=== PATIENT | female | born 1980 | race Caucasian/White ===

== ENCOUNTER 2017-11-21 11:11 | Inpatient (IN) | payer OTHER ==
[~2017-11-21] VITALS: Ht 165.1 cm; Wt 68.0 kg
--- NOTE | 2017-11-21 10:45 | NUR ---
Pre Admission Pt is A/O x4 and makes her needs known. Pt is calm and cooperative with a linear thought process and clear speech pattern. Normal affect with congruent mood. Pt with full range of emotions. Pt endorses using 1-1.5 grams of Heroin, via smoking, daily since 07/2017. Pt was in treatment, left early and relapsed. Pt denies SI/HI or A/VH. Pt is stable for admission. VS as follows BP: 113/70 P: 92 R: 18 T: 98.3 O2: 98%
--- NOTE | 2017-11-21 12:20 | NUR ---
Admission Assessment PCP: Toy Viramontes Substance Use: Heroin: Smokes 1 to 1.5 grams daily since 07/2017. Used at this rate for 2 years. First use three years ago. With last use, smoked approximately 0.1 gram at 0900 11/21/17. Methamphetamine: smokes 0.5 grams daily, off and on for 20 years. First use at age 15. Last use approximately 0.05 grams at 0900 on 11/21/17. Soma: PO 700-1050mg at HS( for insomnia) 3 or 4 times a week. ( pt presents with prescription bottle) GHB: 1 or 2 a month, last use 3 weeks ago. a capful, like the 5 hour energy bottles. Pt admitted to [facility] at 1220, per ambulation. Pt has skin check performed by BARBARA Trevino, with skin intact. Pt is A/O x4 and makes her needs known. Pt with a linear thought process and clear speech pattern. Pt endorses last use, 0.1 gram of Heroin via smoking at 0900 and feels, normal, not sick, not high ( no COWS on admit) Pt with a normal affect and congruent mood. Pt is bright when appropriate and endorse hope for the future. Pt shows insight and is motivated for change. Pt reflects on the importance of her mother in her recovery. Pt endorses her mother has an internal motivating factor. Pt endorses first using Methamphetamines at age 15, to lose weight, I know, stupid right? Pt endorses liking the feeling and has been using, on and off since. Pt is vague about times of use and abstinence. Pt used Heroin 3 years ago after her Meth supplier, he kept asking me if I knew anyone that wanted to, you know, and I finally, well I did something stupid. It was a stupid mistake. I will be honest, I didnt think I would get addicted that fast. Pt shows motivation to get sober, before really bad things happen. Pt endorses a negative consequences in all aspect of my life. , as related to her substance abuse. Pt denies any legal history. Pt able to endorse, sweating, feeling edgy, intense cravings and running nose, as symptoms she experiences when not using Heroin. Pt endorses having a supportive family. 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 Pt endorses, wanting this for a while, I want to close this chapter in my life. Pt shows some insight and verbalizes a trigger to relapse being lack of support from the recovery community and leaving treatment early. Pt states she is going to treatment and will not leave early. Pt states she is looking for guidance. Pt endorses knowing to stay away from her using friends and endorses a strong sober friend [place]. Pt has attempted one prior formal attempt at sobriety in 07/2017 when she attended [facility] in [place]. Pt states , I stayed for 10 days of detox, then I left. Pt endorses staying sober for a week or so before relapsing. Pt denies any chronic medical history. Pt denies any previous psychiatric history. Pt denies any previous psychiatric hospitalizations. Pt denies any previous involuntary holds related to mental health. Pt denies any current SI/HI or A/VH. Pt is oriented to the unit and her room. Pt is provided with unit guidelines and rules. Pt is educated on all aspects of the admission process, including admission educational material and the detoxification process. Pt denies any further comments, questions or concerns.
[2017-11-21 12:41] LABS: *URINE HCG, QUAL NEGATIVE (NEGATIVE)
[2017-11-21 12:51] LABS: *AMPHETAMINE, URINE POSITIVE (NEGATIVE); *BARBITURATE, URINE NEGATIVE (NEGATIVE); *CANNABINOID, URINE NEGATIVE (NEGATIVE); *COCCAINE, URINE NEGATIVE (NEGATIVE); *OPIATE, URINE POSITIVE (NEGATIVE); *PHENCYCLIDINE SCREEN,URINE NEGATIVE (NEGATIVE)
[2017-11-21] MEDS ORDERED: DICYCLOMINE HCL 20 MG TABLET PO PRN (13:30)
[2017-11-21] MEDS ORDERED: MAGNESIUM HYDROXIDE 30 ML LIQUID UDC PO PRN (13:30)
[2017-11-21] MEDS ORDERED: ONDANSETRON ODT 4 MG TAB.RAPDIS SL PRN (13:30)
[2017-11-21] MEDS ORDERED: LOPERAMIDE HCL 2 MG CAPSULE PO PRN ×2 (13:30)
[2017-11-21] MEDS ORDERED: METHOCARBAMOL 750 MG TABLET PO PRN (13:30)
[2017-11-21] MEDS ORDERED: ACETAMINOPHEN 325 MG TABLET PO PRN (13:30)
[2017-11-21] MEDS ORDERED: MAG HYDROX/AL HYDROX/SIMETH 30 ML LIQUID UDC PO PRN (13:30)
[2017-11-21] MEDS ORDERED: INSULIN REGULAR, HUMAN 300 UNIT/3 ML VIAL SQ PRN (14:00)
[2017-11-21] MEDS ORDERED: DEXTROSE 50% 50 ML DISP.SYRIN IV PRN (14:00)
[2017-11-21] MEDS ORDERED: BLOOD SUGAR DIAGNOSTIC 1 EACH STRIP VI SCH (15:00)
[2017-11-21 15:52] LABS: BASOPHILS # (AUTO) 0.1 K/uL (0.0-8.0); EOSINOPHILS # (AUTO) 0.1 K/uL (0.0-0.7); EOSINOPHILS % (AUTO) 1.1 % (0.0-7.0); HEMATOCRIT 38.8 % (31.2-41.9); HEMOGLOBIN 12.9 g/dL (10.9-14.3); LYMPHOCYTES # (AUTO) 2.2 K/uL (20.0-40.0); MEAN CORPUSCULAR HEMOGLOBIN 29.1 uug (24.7-32.8); MEAN CORPUSCULAR HGB CONC 33 g/dL (32.3-35.6); MEAN CORPUSCULAR VOLUME 87.3 fL (75.5-95.3); MONOCYTES # (AUTO) 0.4 K/uL (2.0-10.0); MONOCYTES % (AUTO) 8.5 % (0.0-11.0); NEUTROPHILS # (AUTO) 2.4 K/uL (1.8-8.9); NEUTROPHILS % (AUTO) 46.4 % (38.5-71.5); PLATELET COUNT (AUTO) 194 K/uL (179-408); RED BLOOD CELL COUNT(AUTO) 4.44 MIL/uL (3.63-4.92); WHITE BLOOD COUNT (AUTO) 5.1 K/uL (3.8-11.8)
[2017-11-21 16:02] LABS: ALANINE AMINOTRANSFERASE 35 U/L (14-59); ALKALINE PHOSPHATASE 67 U/L (50-136); ASPARTATE AMINOTRANSFERASE 21 U/L (15-37); BILIRUBIN,TOTAL 0.3 mg/dL (0.2-1.0); CARBON DIOXIDE 31 mmol/L (21-32); CHLORIDE 103 mmol/L (98-107); CREATININE 0.7 mg/dL (0.6-1.3); GLUCOSE 125 mg/dL (74-106); POTASSIUM 3.5 mmol/L (3.5-5.1); TOTAL PROTEIN, SERUM 7.5 g/dL (6.4-8.2); UREA NITROGEN, BLOOD 8 mg/dL (7-18)
[2017-11-21 16:16] LABS: *URINE HCG, QUAL NEGATIVE (NEGATIVE)
[2017-11-21 16:24] LABS: ETHANOL < 3 MG/DL (0-0)
[2017-11-21 16:30] VITALS: BP 116/80
--- NOTE | 2017-11-21 16:30 | NUR ---
COWS Pt with fine tremors, moist skin, anxious and restless. Will continue to monitor, support and encourage according to plan of care. Will continue to monitor, support and encourage according to plan of care.
--- NOTE | 2017-11-21 16:34 | NUR ---
Therapist prompted client to attend group therapy sessions.
[2017-11-21] MEDS: IBUPROFEN 600 MG TABLET PO PRN (17:35)
--- NOTE | 2017-11-21 17:35 | NUR ---
PRN Kelly Pt requesting pain medication for headache 06/06. [employer] Officer administered medication to pt's preference and to order, with pt tolerating well. Will continue to monitor, support and encourage according to plan of care.
--- NOTE | 2017-11-21 18:35 | NUR ---
PRN Re-Assessment Pt endorses feeling better, rating pain at 2/10. Will continue to monitor, support and encourage according to plan of care.
--- NOTE | 2017-11-21 18:43 | NUR ---
End of Shift Soldering Technician provided report on 37 year old female admitted to [facility] on 11/21/17 for medical management of Opiate withdrawals. Pt denies any chronic PMH, and denies any PPH. Pt endorsers NKA, full code and regular diet. Pt with be started on a 3 day Subutex taper in the morning. Last COWS 5. Medicated with PRN Motrin(pain) this shift. Pt is A/O x4 and makes her needs known. Linear thought process and clear speech pattern. Pt is cooperative, has become anxious and restless. Requested anxiety medication, but was able to use non-pharmacological interventions to control her anxiety. Bed in low position with wheels locked and side rails up x2.
--- NOTE | 2017-11-21 19:49 | NUR ---
START OF SHIFT NOTE Rcvd report from outgoing nurse. Pt is a 37 y/o female A/O to person, place, time , and purpose. Pt was admitted for medically supervised withdrawal from Opiates. Pt also has a substance abuse h/o Methamphetamines, Soma, and GHB. Pt will be on a 3 day Subutex taper beginning on 11/22/17. Pt began to present w/ anxiety, restlessness, body aches, tremors, flushing, stuffiness, tearing, abdominal cramping, and shakiness. PRN Motrin was given and noted effective by outgoing nurse. Last COWS 5 @ 1600. Call light is within reach. Pt will continue to be monitored and needs met.
--- NOTE | 2017-11-21 20:03 | NUR ---
COWS ASSESSMENT COWS 13. Pt began to present w/ anxiety, restlessness, body aches, tremors, flushing, stuffiness, tearing, abdominal cramping, and shakiness. V/S: T:99.5, P:85, RR:18, SPO2:100, BP:123/81.
[2017-11-21 20:04] VITALS: BP 123/81
--- NOTE | 2017-11-21 20:05 | NUR ---
CIWA ASSESSMENT CIWA 10. . Pt began presenting w/ anxiety, agitation, tremors, and emotional labiality. V/S: T:98.2, P:96, RR:16, SPO2:95, BP:133/87. Addendum: 11/21/17 at 2149 by ANTONETTE JEONG RN Wrong patient
--- NOTE | 2017-11-21 20:20 | NUR ---
PRN BENADRYL, CLONIDINE, AND VALIUM ADMINISTRATION Benadryl 50mg given for sleep, Clonidine 0.1mg given for anxiety and agitation. Vlium 10mg given for CIWA of 10. Will reassess pt in 1 hr. Addendum: 11/21/17 at 2148 by ANTONETTE JEONG RN wrong patient
[2017-11-21] MEDS: BUPRENORPHINE HCL 2 MG TAB.SUBL SL PRN (20:58)
[2017-11-21] MEDS: diphenhydrAMINE 50 MG CAPSULE PO PRN (20:58)
--- NOTE | 2017-11-21 20:58 | NUR ---
PRN BENADRYL, VISTARIL, CLONIDINE, AND SUBUTEX ADMINISTRATION Benadryl 50mg given for sleep. Clonidine 0.1mg and Vistaril 50mg given for anxiety, agitation, and sweats. Subutex 4mg given for COWS 13. Will reassess pt in 1 hr.
[2017-11-21] MEDS: HYDROXYZINE PAMOATE 25 MG CAPSULE PO PRN (20:59)
[2017-11-21] MEDS: CLONIDINE HCL 0.1 MG TABLET PO PRN (20:59)
--- NOTE | 2017-11-21 21:58 | NUR ---
PRN BENADRYL, CLONIDINE, VISTARIL, AND SUBUTEX REASSESSMENT Pt is in bed w/ her eyes closed. Pt's respirations are unlabored and even.
--- NOTE | 2017-11-21 22:55 | NUR ---
BEHAVIORAL/NURSING NOTE Pt came to the nursing station observably agitated and anxious. Pt states they want to AMA. Spoke w/ pt in her room and she states "I'm dope sick and I need more Suboxone or whatever it is". Medication taper was explained to her and she re-stated "well then I just want my stuff and I want to leave". It was explained to the pt that we didn't want her to feel sick and we didn't want her to leave. We want her to feel better and to help her. B/c of her high anxiety level and use of Methamphetamines, a one time order of Ativan was placed by the set up and charger. Pt refused at first stating she only wanted Subutex. After more education and positive reinforcement, pt agreed to take the Ativan. Will administer.
[2017-11-21] MEDS ORDERED: LORAZEPAM 1 MG TABLET PO ONE (23:15)
--- NOTE | 2017-11-21 23:26 | NUR ---
PRN ATIVAN ADMINISTRATION Ativan 2mg given for anxiety. Pt observed very agitated and w/ a high anxiety level. Will reassess pt in 1 hr.
[2017-11-22 00:09] VITALS: BP 125/79
--- NOTE | 2017-11-22 00:13 | NUR ---
COWS ASSESSMENT COWS 18. Pt began to present w/ anxiety, agitation, restlessness, body aches, tremors, sweats, chills, stuffiness, tearing, and abdominal cramping. V/S: T:99.3, P:90, RR:18, SPO2:99, BP:125/79.
--- NOTE | 2017-11-22 00:26 | NUR ---
AMANDA COOK REASSESSMENT Pt states that still feel "dope sick" and that its not getting any better. Pt requesting more Subutex. Informed pt that she would have to wait just 30min. Pt begrudgingly went back to her room. Promised pt I would give her the Subutex right when its dues and that we don't want to see her suffer. Will continue to closely monitor pt.
--- NOTE | 2017-11-22 00:50 | NUR ---
COWS ASSESSMENT COWS 21. Pt began to present w/ anxiety, restlessness, body aches, tremors, flushing, stuffiness, tearing, abdominal cramping, and goose bumps. V/S: T:99.3, P:90, RR:18, SPO2:99, GEz213/79.
[2017-11-22] MEDS: BUPRENORPHINE HCL 2 MG TAB.SUBL SL PRN (00:58)
--- NOTE | 2017-11-22 00:58 | NUR ---
PRN SUBUTEX ADMINISTRATION Subutex 4mg given for COWS of 21. Pt states they are feeling extremely sick. Pt has come up to the nursing station several times asking for subutex. Will reassess pt in 1 hr.
--- NOTE | 2017-11-22 01:58 | NUR ---
PRN SUBUTEX REASSESSMENT Pt is in her room in bed tossing and turning w/ the door wide open. Pt states no relief from PRN Subutex, "I'm dope sick". Asked the pt is there anything they take at home for sleep or if antyhing works to help them fall asleep. Pt didn't respond. Offered to the pt if there was antyhing I could do or get for her to help. Pt stayed silent. Let pt know I was here if she needed anything. Will continue to closely monitor pt.
[2017-11-22 04:01] VITALS: BP 133/88
--- NOTE | 2017-11-22 04:02 | NUR ---
COWS ASSESSMENT COWS 22. Pt began to present w/ anxiety, agitation, irritability, emotional labiality, restlessness, body aches, tremors, flushing, sweats, stuffiness, tearing, abdominal cramping, and insomnia. P:93, BP:133/88.
[2017-11-22] MEDS: HYDROXYZINE PAMOATE 25 MG CAPSULE PO PRN ×2 (04:08→21:04)
[2017-11-22] MEDS: CLONIDINE HCL 0.1 MG TABLET PO PRN (04:08)
--- NOTE | 2017-11-22 04:08 | NUR ---
PRN VISTARIL AND CLONIDINE ADMINISTRATION Vistaril 50mg and Clonidine 0.1mg given for anxiety and agitation. COWS 22. Will reassess pt in 1 hr.
--- NOTE | 2017-11-22 05:08 | NUR ---
PRN CLONIDINE AND VISTARIL REASSESSMENT' Pt is in bed w/ her eyes closed. pt's respirations are unlabored and even.
[2017-11-22 06:06] LABS: HEPATITIS B SURFACE AG Negative (Negative)
--- NOTE | 2017-11-22 07:09 | NUR ---
END OF SHIFT NOTE Endorsed pt to oncoming nurse. Pt is a 37 y/o female A/O to person, place, time, and purpose. Pt was admitted for medically supervised withdrawal from Opiates. Pt also has a substance abuse h/o Methamphetamines, Soma, and GHB. Pt start a 3 day Subutex taper on 11/22/17. Pt continues to present w/ anxiety, restlessness, body aches, tremors, flushing, sweats, chills, stuffiness, tearing, abdominal cramping, and insomnia. Pt denies any S/I or H/I. PRN Clonidine 0.1mg x2, Vistaril 50mg x2, Subutex 4mg x2, Ativan 2mg, and Benadryl 50mg were given and noted ineffective. Pts s/s of withdrawal escalated rapidly from a COWS of 13 @ 2000, to 18 @ 0000, and 21 @ 0100. Last COWS 22 @ 0400. Pts fluid intake was 900ml and she slept restlessly for 4hrs. Call light is within reach.
--- NOTE | 2017-11-22 07:30 | NUR ---
Start of Shift Fashion Editor received report on 37 year old female admitted to [facility] on 11/21/17 for medical management of Opiate withdrawals. Pt endorsees NKA, full code and a modified regular diet. Pt denies any PMH or PPH. Pt will be started on a 3 day Subutex taper this morning, with last COWS 22, per NOC report. Pt was administered PRN Subutex(withdrawals) 4mg x2, Ativan(anxiety), Benadryl(insomnia) and Clonidine/Vistaril(anxiety) x2 on NOC, per report. Fashion Editor encounters pt in pts room with pt resting with eyes closed. Even and unlabored respirations noted. Bed in low position with wheels locked and side rails up x2. Will continue to monitor, support and encourage according to plan of care.
--- NOTE | 2017-11-22 08:00 | NUR ---
COWS Deferred Pt is resting with eyes closed, even and unlabored respirations. Pt is lethargic and somnolent and refuses assessment questions. Will continue to monitor, support and encourage according to plan of care.
[2017-11-22] MEDS ORDERED: CARI350T PO (08:03)
[2017-11-22 08:28] VITALS: BP 102/59
[2017-11-22] MEDS ORDERED: 3 DAY TAPER BUPRENORPHINE -SERENITY PROTOCOL SL PRN (09:00)
[2017-11-22] MEDS ORDERED: BUPRENORPHINE HCL 2 MG TAB.SUBL SL SCH (09:00)
[2017-11-22] MEDS ORDERED: TUBERCULIN,PURIF.PROT.DERIV. 5 TU/0.1 ML TEST ID ONE (09:00)
--- NOTE | 2017-11-22 10:26 | NUR ---
Therapist prompted client to attend twice daily group therapy sessions.
--- NOTE | 2017-11-22 11:30 | NUR ---
COWS 15 Pt is anxious and restless with fine tremors, moist skin and piloerection of the skin. Will continue to monitor, support and encourage according to plan of care.
--- NOTE | 2017-11-22 11:35 | NUR ---
Late Subutex Administration Medication administered late due to pt's somnolence. Pt requested medications when she awoke. Dr. Sweeney on the unit and aware of late administration. Will continue to monitor, support and encourage according to plan of care.
[2017-11-22 12:00] VITALS: BP 126/71
--- NOTE | 2017-11-22 12:00 | NUR ---
COWS 15 Pt tremulous, diaphoretic, anxious and restless with piloerection of the skin. Pt complains of nausea and myalgia. Will continue to monitor, support and encourage according to plan of care.
[2017-11-22] MEDS ORDERED: 4 DAY TAPER BUPRENORPHINE -SERENITY PROTOCOL SL PRN (12:30)
--- NOTE | 2017-11-22 13:52 | NUR ---
Endorsement of Care Supervisor Parking Lot endorsed care of pt to CATHERINE Kiran. All updates provided.
--- NOTE | 2017-11-22 14:01 | NUR ---
Transfer Of Care Recieved pt a 37 y/o F admitted on 11/21/17 for medically supervised heroin. Pt continues on a 3 day subutex taper that started today and tolerating well. Pt is currently in room in bed, watching tv. Last COWS 15 @1200. Safety measures in place. Will continue to monitor and care of pt.
[2017-11-22] MEDS: BUPRENORPHINE HCL 2 MG TAB.SUBL SL SCH ×2 (14:59→21:04)
[2017-11-22 16:30] VITALS: BP 113/79
--- NOTE | 2017-11-22 16:35 | NUR ---
COWS 16 Pt presents enlarged pupils, sweating, cold/hot flashes, nasal congestion, generalized body aches, goosebumps, anxiety and agitation, chills, restlessness, and tremors are noted. No prns given. Will continue to monitor.
--- NOTE | 2017-11-22 19:30 | NUR ---
Start of Shift Patient Received. Per endorsement, patient continues on a 3 day Subutex taper. Patient has been noted to participate in group and social activities. No PRN Medications administered. Last noted COWS 16. Upon Rounds patient is noted in her room, awake, alert and verbally responsive. Patient is noted to be disheveled, restless, and verbalizes increased anxiety. Reviewed due medications with patient and she was able to verbalize understanding. All needs attended to promptly. Will continue plan of care as ordered.
--- NOTE | 2017-11-22 19:32 | NUR ---
End Of Shift Pt has attended groups, and has been actively interacting with peers. Last COWS 16. No prns given. Pt ate 50/50/75% of meals. Fluid intake 875 ml, voided x3, bm x1. Safety measures in place.
[2017-11-22 20:30] VITALS: BP 110/71
[2017-11-22] MEDS: diphenhydrAMINE 50 MG CAPSULE PO PRN (21:03)
--- NOTE | 2017-11-22 21:06 | NUR ---
PRN Medication Administration Patient is verbalizing increased anxiety and inability of falling asleep. PRN Vistaril and Benadryl administered with routine medications. Will continue to monitor.
--- NOTE | 2017-11-22 22:00 | NUR ---
PRN Medication Reassessment Patient is noted in bed with eyes closed. Breathing even and non labored. No signs of restlessness or discomfort noted. PRN Vistaril and Benadryl noted to be effective. Will continue to monitor.
--- NOTE | 2017-11-23 | NUR ---
COWS Assessment patient is noted in bed with eyes closed. Vitals rendered. Patient remained asleep. Unable to be complete COWS assessment as per order. Will continue to monitor.
[2017-11-23 00:32] VITALS: BP 108/65
[2017-11-23 04:00] VITALS: BP 107/55
--- NOTE | 2017-11-23 04:00 | NUR ---
COWS Assessment Patient is noted in bed with eyes closed. Breathing even and non labored. No signs of restlessness or discomfort noted. Vitals rendered and patient is noted to sleep through vital signs with no complications noted. COWS unable to be completed as per order. Will continue to monitor.
--- NOTE | 2017-11-23 07:35 | NUR ---
End of Shift Patient is in bed with eyes closed. Breathing even and non labored. No signs of restlessness or discomfort noted. Patient continues on a 3 day Subutex taper. Patient was noted to be isolative to room prior to bed. PRN Vistaril and Benadryl administered with medication noted to be effective. patient noted to sleep a total of 8 hours. Last noted COWS 16. All needs attended to promptly. Will continue plan of care as ordered.
[2017-11-23 08:00] VITALS: BP 115/61
--- NOTE | 2017-11-23 08:00 | NUR ---
Start of Shift Notes/COWS Assessment: Patient is a 37 year old female admitted for opiate withdrawal who was placed on a 3-day Subutex taper as ordered. Per night report, patient was given PRN Vistaril and Benadryl with last COWS of 12 and slept for 8 hours. Received patient in her room. Awake, alert and oriented x 4. Denies S/I or H/I noted. No AV hallucinations noted. She appears disheveled, dark circles around eyes, pupil dilation noted, and verbalizes complains of nausea x 1 episode of emesis, chills, hot flashes, and increased anxiety. COWS 14 upon this assessment. Garbage and dirty clothing seen scattered everywhere around her room with empty water bottles and cups at bedside. Encouraged to maintain her personal hygiene and space. Educated patient on her current plan of care for the day and her medication regimen. Encouraged oral fluid intake and encouraged group participation to learn new skills to prevent relapse. Will continue to monitor closely.
[2017-11-23] MEDS: IBUPROFEN 600 MG TABLET PO PRN (08:29)
--- NOTE | 2017-11-23 08:29 | NUR ---
Motrin 600 mg/Zofran 4 mg ODT given: Patient noted with complain of 6/10 menstrual cramps and with noted episode of nausea and x 1 emesis. Medicated patient with Motrin 600 mg PO and Zofran 4 mg ODT as ordered. Will monitor for effectiveness.
[2017-11-23] MEDS ORDERED: BUPRENORPHINE HCL 2 MG TAB.SUBL SL SCH ×3 (09:00→15:00)
--- NOTE | 2017-11-23 09:29 | NUR ---
Re-assessment: Motrin/Zofran Patient's verbalizes relief from nausea. Emesis has ceased and she verbalizes that her pain level is now a 3 out of 10. PRN Zofran and Motrin was effective.
[2017-11-23 12:00] VITALS: BP 100/62
--- NOTE | 2017-11-23 12:44 | NUR ---
COWS Assessment: COWS 12, patient continues to present with chills, hot flashes, intermittent restlessness, myalgia, nausea, anxiety and agitation. Offered PRNs but refused. Oral fluids encouraged. Will continue to monitor.
--- NOTE | 2017-11-23 13:33 | NUR ---
Therapist prompted client to attend all group therapy sessions.
[2017-11-23 16:00] VITALS: BP 105/69
--- NOTE | 2017-11-23 16:00 | NUR ---
COWS Assessment: COWS 10, patient continues to present with restlessness, chills, hot flashes, myalgia, anxiety, agitation and generalized discomfort. Offered PRNs. Oral fluids encouraged. All needs met and attended. Will continue to monitor.
--- NOTE | 2017-11-23 18:50 | NUR ---
AMA Note: Patient verbalized wanting to leave against medical advice. Patient reports, I just want to leave Im not ready for this. Encouraged patient to verbalize her feelings and concerns. Offered PRN medication but patient insisted on leaving. Nurse, geriatric case manager, MD, billet recorder and other staff members encouraged patient to stay. Patient education provided regarding risk involved if she leaves. But patient continues to want to leave. All her clothing, valuables and belongings were returned to the patient. A copy of community resources was given to the patient. VS stable. Denies S/I or H/I. No AV hallucinations noted. Patient left the unit at this time.
[2017-11-24] MEDS ORDERED: BUPRENORPHINE HCL 2 MG TAB.SUBL SL SCH ×2 (09:00)
[2017-11-25] MEDS ORDERED: BUPRENORPHINE HCL 2 MG TAB.SUBL SL SCH (09:00)
== END 2017-11-23 18:50 | disposition left against medical advice (07) | DRG 894 ==
LOC: SRC 11:11
PROVIDERS: ADMIT Family Medicine Addiction Medicine; ATTEND Family Medicine Addiction Medicine
PROC: HZ41ZZZ Group Counseling for Substance Abuse Treatment, Behavioral (ICD-10-PCS; principal; 2017-11-21)
PROC: HZ2ZZZZ Detoxification Services for Substance Abuse Treatment (ICD-10-PCS; principal; 2017-11-21)
PROC: HZ31ZZZ Individual Counseling for Substance Abuse Treatment, Behavioral (ICD-10-PCS; 2017-11-23)
DX: F11.23 Opioid dependence with withdrawal (principal); F17.210 Nicotine dependence, cigarettes, uncomplicated; F41.9 Anxiety disorder, unspecified; F13.239 Sedative, hypnotic or anxiolytic dependence with withdrawal, unspecified; F15.23 Other stimulant dependence with withdrawal
CPT/HCPCS: 36415; 70030-TC; 80307; 80324; 80361; 83735; 84443; 84703; 85025; 86592; 86705; 86803; 87340; 87806; G0480; Q0162; Q0163